=== PATIENT | female | born 1980 | race Caucasian/White ===

== ENCOUNTER 2023-11-03 11:12 | Emergency (ER) | payer BC ==
[2023-11-03 12:00] LABS: Basophils % (A) 0 %; Eosinophils # (A) 0.1 k/uL (0-0.7); Eosinophils % (A) 1 %; HCT 41.9 % (34.0-46.0); HGB 13.7 gm/dL (11.4-16.0); Lymphocytes # (A) 2.1 k/uL (1.0-4.8); Lymphocytes % (A) 20 %; MCH 29.5 pg (25.0-35.0); MCHC 32.7 g/dL (31.0-37.0); MCV 90.1 fL (80.0-100.0); Monocytes # (A) 0.3 k/uL (0-1.0); Monocytes % (A) 3 %; Neutrophils # (A) 8.2 k/uL (1.3-7.7); Neutrophils % (A) 75 %; Platelet Count 323 k/uL (150-450); RBC 4.65 m/uL (3.80-5.40); RDW 13.2 % (11.5-15.5); WBC 10.9 k/uL (3.8-10.6)
[2023-11-03 12:21] LABS: ALT 14 U/L (4-34); AST 20 U/L (14-36); African American GFR (CKD) >90 (>60 ml/min/1.73 sqM); Albumin 4.5 g/dL (3.5-5.0); Alkaline Phosphatase 69 U/L (38-126); Anion Gap 12 mmol/L; Blood Urea Nitrogen 17 mg/dL (7-17); Calcium 9.8 mg/dL (8.4-10.2); Carbon Dioxide 22 mmol/L (22-30); Chloride 106 mmol/L (98-107); Glucose 105 mg/dL (74-99); Magnesium 2.1 mg/dL (1.6-2.3); Non-African American GFR(CKD) >90 (>60 ml/min/1.73 sqM); Potassium 4.1 mmol/L (3.5-5.1); Sodium 140 mmol/L (137-145); Total Bilirubin 0.6 mg/dL (0.2-1.3); Total Protein 7.7 g/dL (6.3-8.2)
[2023-11-03 12:22] LABS: INR 0.9 (<1.2); Partial Thromboplastin Time 26.3 sec (22.0-30.0); Prothrombin Time 10.2 sec (10.0-12.5)
--- NOTE | 2023-11-03 12:29 | ED ---
Arrhythmia/Palpitations HPI - General Source: patient, RN notes reviewed Mode of arrival: ambulatory Limitations: no limitations <Dayron Christian - Last Filed: 11/03/23 12:28> <Alondra Franco - Last Filed: 11/03/23 16:54> - General Chief Complaint: Arrhythmia/Palpitations Stated Complaint: High blood Pressure Time Seen by Provider: 11/03/23 12:28 - History of Present Illness Initial Comments: 43-year-old female presents emergency Department chief complaint of palpitations. Patient states she just got off break at work in which she states she started feeling her heart was racing she came very lightheaded, tingly all over. Patient states that she still has some symptoms currently. She denies any significant past history denies any complaints of chest pain. (Dayron Christian) Note reviewed: This is a pleasant 43-year-old female with no significant past medical history presents to the emergency department with a chief complaint of palpitations. Patient reports that she had a break at work at approximately 09 30 this morning when she felt her heart was beating out of her chest. She became very lightheaded, diaphoretic and felt tingling all over. She reports that her work transferred to an urgent care where they did an EKG and recommends becoming evaluated at the emergency department. She reports feeling like her palpitations have resolved however reports a slight headache and like her extremities are cold. Has never had this happen to her before. She denies history of long plane or car rides. She does take oral contraceptives. Denies active tobacco product use. (Alondra Franco) - Related Data Home Medications Medication Instructions Recorded Confirmed Cetirizine HCl [Zyrtec] 10 mg PO HS 11/03/23 11/03/23 Jaimiess 1 tab PO HS 11/03/23 11/03/23 Pantoprazole Sodium [Protonix] 40 mg PO BID 11/03/23 11/03/23 Allergies Allergy/AdvReac Type Severity Reaction Status Date / Time azithromycin Allergy Rash/Hives Verified 11/03/23 15:31 gabapentin Allergy Rash/Hives Verified 11/03/23 15:31 Penicillins Allergy Rash/Hives Verified 11/03/23 15:31 vancomycin Allergy Rash/Hives Verified 11/03/23 15:31 Review of Systems ROS Other: All systems not noted in ROS Statement are negative. <Dayron Christian - Last Filed: 11/03/23 12:28> ROS Other: All systems not noted in ROS Statement are negative. <Alondra Franco - Last Filed: 11/03/23 16:54> ROS Statement: Those systems with pertinent positive or pertinent negative responses have been documented in the HPI. Past Medical History Past Medical History: No Reported History Past Surgical History: Joint Replacement, Orthopedic Surgery Past Psychological History: No Psychological Hx Reported Smoking Status: Never smoker Past Alcohol Use History: Occasional Past Drug Use History: None Reported <Dayron Christian - Last Filed: 11/03/23 12:28> General Exam Limitations: no limitations General appearance: alert, in no apparent distress <Dayron Christian - Last Filed: 11/03/23 12:28> <Alondra Franco - Last Filed: 11/03/23 16:54> - General Exam Comments Initial Comments: Visual Physical Exam Vital signs reviewed General: Well-appearing, nontoxic, no acute distress. Head: Normocephalic, atraumatic Eyes: PERRLA, EOMI ENT: Airway patent Chest: Nonlabored breathing Skin: No visual rash, normal skin tone Neuro: Alert and oriented 3 Musculoskeletal: No gross abnormalities (Dayron Christian) General: Alert, in no acute distress Head: atraumatic normocephalic. Eyes PERRL, EOMI intact, mucous membranes moist Respiratory: Lungs clear to auscultation bilaterally Cardiovascular: Regular rate and rhythm Abdominal: Soft without guarding or rebound Extremities: Normal inspection with full range of motion and normal capillary refill Neuroogic: alert and oriented 3, CN II-XII intact, able to ambulate with steady gait Skin: warm dry and intact with normal color (Alondra Franco) Course <Alondra Franco - Last Filed: 11/03/23 16:54> Vital Signs 11/03/23 11/03/23 11/03/23 11:16 15:12 16:44 Temperature 98.8 F 98.7 F Pulse Rate 105 H 95 95 Pulse Rate [ 92 Vamp Seamer ] Respiratory 20 18 18 Rate Blood Pressure 141/75 152/84 130/78 O2 Sat by Pulse 99 100 98 Oximetry - Reevaluation(s) Reevaluation #1: 11/03/23 14:45 quick note and labs reviewed. Initial history and physical exam performed. Patient still reports feeling like her heart is racing slightly. Agreeable with additional lab work. (Alondra Franco) Reevaluation #2: 11/03/23 16:24 Patient re-evaluated. Patient reports no sensation of palpitations (Alondra Franco) EKG Findings - EKG Comments: EKG Findings:: I interpreted the following: EKG performed at 11:31 3 110 bpm and sinus tachycardia ME interval 132, QRS duration 92, QT/QTc 321/386 <Alondra Franco - Last Filed: 11/03/23 16:54> Medical Decision Making - Lab Data Result diagrams: 11/03/23 11:42 11/03/23 11:42 <Dayron Christian - Last Filed: 11/03/23 12:28> - Lab Data Result diagrams: 11/03/23 11:42 11/03/23 11:42 <Alondra Franco - Last Filed: 11/03/23 16:54> - Medical Decision Making I completed the quick note portion of this chart signed Dayron Christian PA-C (Dayron Christian) Was pt. sent in by a medical professional or institution (BANDAR [place]aman, CAREER DEVELOPMENT FACILITATOR, urgent care, hospital, or fpc...) When possible be specific @ -Urgent Care Did you speak to anyone other than the patient for history (EMS, parent, family, police, friend...)? What history was obtained from this source @ -[No] Did you review nursing and triage notes (agree or disagree)? Why? @ -[I reviewed and agree with nursing and triage notes] Were old charts reviewed (outside hosp., previous admission, EMS record, old EKG, old radiological studies, urgent care reports/EKG's, fpc records)? Report findings @ -EKG from Urgent Care reviewed: EKG performed at 10:59 AM rate 109 bpm and sinus tachycardia ME interval 152, QRS durration 84, QT/QTc 350/457 Differential Diagnosis (chest pain, altered mental status, abdominal pain women, abdominal pain men, vaginal bleeding, weakness, fever, dyspnea, syncope, headache, dizziness, GI bleed, back pain, seizure, CVA, palpatations, mental he alth, musculoskeletal)? @ -[not applicable] EKG interpreted by me (3pts min.). @ -[As above] X-rays interpreted by me (1pt min.). @ Chest XR reveals No Focal consolidation, cardiomegaly CT interpreted by me (1pt min.). @ -[None done] U/S interpreted by me (1pt. min.). @ -[None done] What testing was considered but not performed or refused? (CT, X-rays, U/S, labs)? Why? @ -[None] What meds were considered but not given or refused? Why? @ -[None] Did you discuss the management of the patient with other professionals (professionals i.e. , PA, CAREER DEVELOPMENT FACILITATOR, lab, RT, psych nurse, social work lecturer, billet bed operator, teacher, supervisory cbp officer, telephonic nurse case manager)? Give summary @ -[No] Was smoking cessation discussed for >3mins.? @ -[No] Was critical care preformed (if so, how long)? @ -[No] Were there social determinants of health that impacted care today? How? (Homelessness, low income, unemployed, alcoholism, drug addiction, transportation, low edu. Level, literacy, decrease access to med. care, correction, rehab)? @ -[No] Was there de-escalation of care discussed even if they declined (Discuss DNR or withdrawal of care, Hospice)? DNR status @ -[No] What co-morbidities impacted this encounter? (DM, HTN, Smoking, COPD, CAD, Cancer, CVA, ARF, Chemo, Hep., AIDS, mental health diagnosis, sleep apnea, morbid obesity)? @ -[None] Was patient admitted / discharged? Hospital course, mention meds given and route, prescriptions, significant lab abnormalities, going to OR and other pertinent info. @ Discharged. This is a pleasant 43-year-old female who presents the emergency department with palpitations. Patient had a thorough history and physical exam performed. Heart rate persistently ranging from 95 to lower 100s, however regular, Lungs clear, abdomen soft nontender. Patient had extensive laboratory tests performed which revealed 2 negative serial troponins. Negative d-dimer testing. Patient's chest x-ray unremarkable. I discussed results in detail with the patient verbalized understanding all questions addressed. She is agreeable with the plan for discharge home with recommended close follow-up with PCP and cardiology in 1-2 days. Return precautions were discussed at length. Patient was given Tylenol small dose of Ativan for her symptoms mild symptomatic improvement. She is agreeable with the plan for discharge home. Case is discussed with Dr. Griffith, ED attending who agrees with plan of care Undiagnosed new problem with uncertain prognosis? @ -[No] Drug Therapy requiring intensive monitoring for toxicity (Heparin, Nitro, Insulin, Cardizem)? @ -[No] Were any procedures done? @ -[No] Diagnosis/symptom? @ -Palpitations - Headache - Upper and lower extremity tingling Acute, or Chronic, or Acute on Chronic? @ -Acute Uncomplicated (without systemic symptoms) or Complicated (systemic symptoms)? @ -Uncomplicated Side effects of treatment? @ -[No] Exacerbation, Progression, or Severe Exacerbation? @ -[No] Poses a threat to life or bodily function? How? (Chest pain, [place], [place], pneumonia, PE, COPD, DKA, ARF, appy, cholecystitis, CVA, Diverticulitis, Homicidal, Suicidal, threat to staff... and all critical care pts) @ -Low likelihood (Alondra Franco) - Lab Data Lab Results 11/03/23 11/03/23 11/03/23 Range/Units 11:42 11:42 11:42 WBC 10.9 H (3.8-10.6) k/uL RBC 4.65 (3.80-5.40) m/uL Hgb 13.7 (11.4-16.0) gm/dL Hct 41.9 (34.0-46.0) % MCV 90.1 (80.0-100.0) fL MCH 29.5 (25.0-35.0) pg MCHC 32.7 (31.0-37.0) g/dL RDW 13.2 (11.5-15.5) % Plt Count 323 (150-450) k/uL MPV 8.0 Neutrophils % 75 % Lymphocytes % 20 % Monocytes % 3 % Eosinophils % 1 % Basophils % 0 % Neutrophils # 8.2 H (1.3-7.7) k/uL Lymphocytes # 2.1 (1.0-4.8) k/uL Monocytes # 0.3 (0-1.0) k/uL Eosinophils # 0.1 (0-0.7) k/uL Basophils # 0.0 (0-0.2) k/uL PT 10.2 (10.0-12.5) sec INR 0.9 (<1.2) APTT 26.3 (22.0-30.0) sec D-Dimer (<0.60) mg/L FEU Sodium 140 (137-145) mmol/L Potassium 4.1 (3.5-5.1) mmol/L Chloride 106 (98-107) mmol/L Carbon Dioxide 22 (22-30) mmol/L Anion Gap 12 mmol/L BUN 17 (7-17) mg/dL Creatinine 0.78 (0.52-1.04) mg/dL Est GFR (CKD-EPI)AfAm >90 (>60 ml/min/1.73 sqM) Est GFR (CKD-EPI)NonAf >90 (>60 ml/min/1.73 sqM) Glucose 105 H (74-99) mg/dL Calcium 9.8 (8.4-10.2) mg/dL Magnesium 2.1 (1.6-2.3) mg/dL Total Bilirubin 0.6 (0.2-1.3) mg/dL AST 20 (14-36) U/L ALT 14 (4-34) U/L Alkaline Phosphatase 69 (38-126) U/L Troponin I (0.000-0.034) ng/mL Total Protein 7.7 (6.3-8.2) g/dL Albumin 4.5 (3.5-5.0) g/dL 11/03/23 11/03/23 11/03/23 Range/Units 11:42 15:00 15:00 WBC (3.8-10.6) k/uL RBC (3.80-5.40) m/uL Hgb (11.4-16.0) gm/dL Hct (34.0-46.0) % MCV (80.0-100.0) fL MCH (25.0-35.0) pg MCHC (31.0-37.0) g/dL RDW (11.5-15.5) % Plt Count (150-450) k/uL MPV Neutrophils % % Lymphocytes % % Monocytes % % Eosinophils % % Basophils % % Neutrophils # (1.3-7.7) k/uL Lymphocytes # (1.0-4.8) k/uL Monocytes # (0-1.0) k/uL Eosinophils # (0-0.7) k/uL Basophils # (0-0.2) k/uL PT (10.0-12.5) sec INR (<1.2) APTT (22.0-30.0) sec D-Dimer 0.26 (<0.60) mg/L FEU Sodium (137-145) mmol/L Potassium (3.5-5.1) mmol/L Chloride (98-107) mmol/L Carbon Dioxide (22-30) mmol/L Anion Gap mmol/L BUN (7-17) mg/dL Creatinine (0.52-1.04) mg/dL Est GFR (CKD-EPI)AfAm (>60 ml/min/1.73 sqM) Est GFR (CKD-EPI)NonAf (>60 ml/min/1.73 sqM) Glucose (74-99) mg/dL Calcium (8.4-10.2) mg/dL Magnesium (1.6-2.3) mg/dL Total Bilirubin (0.2-1.3) mg/dL AST (14-36) U/L ALT (4-34) U/L Alkaline Phosphatase (38-126) U/L Troponin I <0.012 <0.012 (0.000-0.034) ng/mL Total Protein (6.3-8.2) g/dL Albumin (3.5-5.0) g/dL Disposition <Dayron Christian - Last Filed: 11/03/23 12:28> Is patient prescribed a controlled substance at d/c from ED?: No Time of Disposition: 16:22 <Alondra Franco - Last Filed: 11/03/23 16:54> Clinical Impression: Palpitations, Headache, Tingling in extremities Disposition: HOME SELF-CARE Condition: Stable Instructions (If sedation given, give patient instructions): Heart Palpitations (ED) Additional Instructions: Please be sure to stay hydrated over the next Please monitor symptoms closely Please return to the nearest emergency department if worsening palpitations, chest pain or shortness of breath develop Referrals: Nonstaff,Physician [Primary Care Provider] - 1-2 days [facility] [Provider Group] - 1-2 days Forms: [facility] PCPs
--- NOTE | 2023-11-03 12:41 | XR ---
EXAMINATION TYPE: XR chest 2V DATE OF EXAM: 11/03/2023 COMPARISON: NONE HISTORY: Arrhythmia. TECHNIQUE: Frontal and lateral views of the chest are obtained. FINDINGS: There is no focal air space opacity, pleural effusion, or pneumothorax seen. The cardiac silhouette size is within normal limits. The osseous structures are intact. IMPRESSION: No acute cardiopulmonary process.
[2023-11-03] MEDS ORDERED: ACETAMINOPHEN TAB 325 MG TAB PO STA (15:00)
[2023-11-03] MEDS ORDERED: LORazepam 1 MG TAB PO STA (15:00)
[2023-11-03] MEDS ORDERED: SODIUM CHLORIDE 0.9% 1,000 ML IV ONE (15:02)
[2023-11-03 15:29] VITALS: PULSE 95; RESP 18
[2023-11-03 17:01] VITALS: BP 130/78; TEMP 98.7
== END 2023-11-03 16:50 | disposition home or self-care (01) ==
LOC: EC 11:12
DX: R00.2 Palpitations (principal); R51.9 Headache, unspecified; R20.2 Paresthesia of skin; R00.0 Tachycardia, unspecified; Z88.6 Allergy status to analgesic agent; Z88.0 Allergy status to penicillin; Z88.8 Allergy status to other drugs, medicaments and biological substances
CPT/HCPCS: 36415; 71046; 80053; 83735; 84484; 85025; 85379; 85610; 85730; 93005; 96360; 96361; 99285